=== PATIENT | female | born 1935 | race African-American/Black ===

== ENCOUNTER 2016-06-23 22:26 | Emergency (ER) | payer MEDICARE, BC ==
[~2016-06-23] VITALS: Ht 157.5 cm; Wt 90.7 kg
[2016-06-23] MEDS ORDERED: HYDROCODONE/APAP 5/325MG 1 EACH TABLET ONE (23:51)
[2016-06-24] MEDS ORDERED: HYDROCODONE/APAP 5/325MG 1 EACH TABLET PO ONE
--- NOTE | 2016-06-24 00:07 | NUR ---
XRAY IS AT THE BEDSIDE.
--- NOTE | 2016-06-24 01:05 | NUR ---
ORTHOGLASS BEING APPLIED BY EMT.
--- NOTE | 2016-06-24 01:35 | NUR ---
Patient discharged to home in stable condition. Written and verbal after care instructions given. Patient verbalizes understanding of instruction AND RX. PT CALLED HER FRIEND TO PICK HER UP. PT REC'D A SPLINT TO THE LUE AND AMBULATED TO THE LOBBY WITH A STEADY GAIT. VSS.
[2016-06-24 01:42] VITALS: BP 147/72
== END 2016-06-24 01:43 | disposition home or self-care (01) ==
LOC: ER 22:26
DX: S52.122A Displaced fracture of head of left radius, initial encounter for closed fracture (principal); I10 Essential (primary) hypertension; Z88.8 Allergy status to other drugs, medicaments and biological substances; W01.0XXA Fall on same level from slipping, tripping and stumbling without subsequent striking against object, initial encounter; Y93.89 Activity, other specified; Y92.89 Other specified places as the place of occurrence of the external cause; Y99.9 Unspecified external cause status
CPT/HCPCS: 73110; A4606; Z7610